=== PATIENT | male | born 1960 | race Caucasian/White ===

== ENCOUNTER → 2021-09-30 | Outpatient (CLI) | payer SELFPAY ==
--- NOTE | 2021-09-30 12:02 | XR ---
EXAMINATION TYPE: XR chest 2V DATE OF EXAM: 09/30/2021 COMPARISON: NONE TECHNIQUE: PA and lateral views submitted. HISTORY: Cough FINDINGS: There is a lobulated density posterior on the lateral view. The heart size is normal nurse hypertroph ic and degenerative changes spine with no pleural effusion or pneumothorax. Mild hyperexpansion. IMPRESSION: 1. Lobulated density on the lateral view posteriorly measuring [address] of the chest for fu rther evaluation.
== END | disposition home or self-care (01) ==
LOC: RADXRMAIN 11:43
PROVIDERS: ATTEND Family Medicine
DX: J98.4 Other disorders of lung (principal)
CPT/HCPCS: 71046

== ENCOUNTER → 2021-10-15 | Outpatient (CLI) | payer SELFPAY ==
--- NOTE | 2021-10-15 09:35 | CT ---
EXAMINATION TYPE: CT chest wo con DATE OF EXAM: 10/15/2021 COMPARISON: Chest x-ray September 30, 2021. HISTORY: Pulmonary Nodule, abnormal x-ray. CT DLP: 338.8 mGycm. Automated Exposure Control for Dose Reduction was Utilized. TECHNIQUE: CT scan of the thorax is performed without IV contrast. FINDINGS: LUNGS: Multifocal areas of increased opacity bilaterally greatest posteriorly and greatest in the low er lungs. Overall reticular increased opacities most prominent towards the diaphragms. For reference there is a 1.4 x 0.9 cm scarlike opacity left likely spiculated nodule axial image 55 and the left nilo ng base. Roughly 1.8 x 1.4 cm similar finding posterior right lower lobe axial image 44 noted. Faint areas of groundglass opacity towards the periphery on background reticulation. There is no pleural ef fusion or pneumothorax seen. The tracheobronchial tree is patent. MEDIASTINUM: Lack of IV contrast is noted to limit evaluation for mediastinal and especially hilar ad enopathy. There are no definitive greater than 1 cm hilar or mediastinal lymph nodes. No cardiomega ly or pericardial effusion is seen. Ascending aorta measures up to 3.6 cm in diameter. OTHER: Slight underlying scoliotic curvature. Bridging anterior osteophytes in the mid thoracic spine . IMPRESSION: Above findings suspicious for residual acute infectious process developing chronic scarri ng. Correlate clinically for recent covid-19 infection. Correlation with old outside x-ray and/or CT would be beneficial. Consider follow-up CT and/or PET/CT in 2-3 months time to reassess.
== END | disposition home or self-care (01) ==
LOC: RADCTMAIN 07:36
PROVIDERS: ATTEND Family Medicine
DX: R91.8 Other nonspecific abnormal finding of lung field (principal)
CPT/HCPCS: 71250